=== PATIENT | female | born 1990 | race Caucasian/White ===

== ENCOUNTER 2017-11-16 21:28 | Emergency (ER) | payer SELFPAY ==
--- NOTE | 2017-11-16 22:28 | C.PDOC ---
History Of Present Illness <Julio Burnette - Last Filed: 11/16/17 22:49> <Brett Bond M - Last Filed: 11/21/17 07:15> Patient is a 27 year old female LMP ( 11/02/2017), with no past medical history who presents to the ED with complaints of nausea and vomiting that started around 4pm today. Patient also reports associated symptoms of headache that started after arriving to the ED. Patient denies chest pain, SOB, palpitations, fever, chills, diarrhea and abdominal pain. (Jluio Burnette) History Per: Patient History/Exam Limitations: no limitations Onset/Duration Of Symptoms: Hrs Current Symptoms Are (Timing): Still Present Severity: Mild Pain Scale Rating Of: 2 Recent travel outside of the [place]: No Additional History Per: Patient <Julio Burnette - Last Filed: 11/16/17 22:49> <Brett Bond M - Last Filed: 11/21/17 07:15> Time Seen by Provider: 11/16/17 21:58 Chief Complaint (Nursing): Headache Past Medical History - Medical History PMH: Asthma, Kidney Stones Family History: States: Unknown Family Hx - Social History Hx Tobacco Use: Yes (1-3 Cigarettes ) Hx Alcohol Use: Yes (Socially ) Hx Substance Use: No - Immunization History Hx Tetanus Toxoid Vaccination: No Hx Influenza Vaccination: No Hx Pneumococcal Vaccination: No <Julio Burnette - Last Filed: 11/16/17 22:49> Vital Signs: Last Vital Signs Temp 97.9 F 11/17/17 00:09 Pulse 60 11/17/17 00:09 Resp 14 11/17/17 00:09 BP 100/64 11/17/17 00:09 Pulse Ox 100 11/17/17 00:09 Review Of Systems Constitutional: Negative for: Fever, Chills, Weakness, Malaise Eyes: Negative for: Pain, Vision Change ENT: Negative for: Ear Pain, Ear Discharge Cardiovascular: Positive for: Orthopnea, Paroxysmal Noc. Dyspnea. Negative for : Chest Pain, Palpitations, Edema Respiratory: Negative for: Shortness of Breath, Hemoptysis, SOB with Excertion, Wheezing Gastrointestinal: Positive for: Nausea, Vomiting. Negative for: Abdominal Pain , Diarrhea, Constipation, Hematochezia, Hematemesis Genitourinary: Negative for: Dysuria, Frequency, Hematuria, Vaginal Discharge, Vaginal Bleeding, Pelvic Pain Neurological: Positive for: Headache. Negative for: Weakness, Numbness, Confusion, Seizures, Dizziness <Vasile,Editasodiann E - Last Filed: 11/16/17 22:49> Physical Exam - Physical Exam Appears: No Acute Distress Skin: Normal Color, No Dry Head: Atraumatic, Normacephalic Eye(s): bilateral: Normal Inspection, PERRL, EOMI Oral Mucosa: Moist, No Drooling Tongue: Normal Appearing, No Swelling, No Lesions, No Bite, No Laceration Lips: Normal Appearing Teeth: Normal Dentition Cardiovascular: Rhythm Regular, No Murmur Respiratory: Normal Breath Sounds, No Decreased Breath Sounds, No Accessory Muscle Use, No Rales, No Rhonchi, No Stridor, No Wheezing Gastrointestinal/Abdominal: Normal Exam, Bowel Sounds, Soft, No Tenderness, No Organomegaly, No Mass Back: No CVA Tenderness Extremity: Normal ROM, No Tenderness, No Pedal Edema, No Calf Tenderness, No Capillary Refill, No Swelling Extremity: Bilateral: Atraumatic Neurological/Psych: Oriented x3, Normal Speech, Normal Cognition, Normal Cranial Nerves <Edita Burnettesola E - Last Filed: 11/16/17 22:49> ED Course And Treatment - Laboratory Results Result Diagrams: 11/16/17 22:28 11/16/17 22:28 O2 Sat by Pulse Oximetry: 99 <Edita Burnettesodiann E - Last Filed: 11/16/17 22:49> - Laboratory Results Result Diagrams: 11/16/17 22:28 11/16/17 22:28 <Brett Bond - Last Filed: 11/21/17 07:15> Medical Decision Making <Julio Burnette E - Last Filed: 11/16/17 22:49> <Brett Bond - Last Filed: 11/21/17 07:15> Medical Decision Making: Reglan 10mg IV once Benadryl 25mg PO once daily NS @ 1,000ml bolus K-dur 20meq once (Julio Burnette) On reevaluation, patient states improvement. Will discharge home to follow up with pmd in 2 days. ([place] M) Disposition - Disposition Disposition Time: 22:49 <Julio Burnette E - Last Filed: 11/16/17 22:49> Counseled Patient/Family Regarding: Studies Performed, Diagnosis, Need For Followup, Rx Given <Brett Bond M - Last Filed: 11/21/17 07:15> - Disposition Referrals: [facility] [Outside] Disposition: HOME/ ROUTINE Condition: GOOD Additional Instructions: follow up with your doctor in 2 days call to make an appointment take medication as needed return to ER if symptoms worsens or progress Prescriptions: Ondansetron ODT [Zofran ODT] 4 mg PO TID PRN #12 odt PRN Reason: Nausea/Vomiting Instructions: Nausea and Vomiting, Adult (DC) Forms: General Discharge Instructions, [facility] (Samoan), Work Excuse - Clinical Impression Clinical Impression: Nausea & vomiting
[2017-11-16 22:33] LABS: BASO # 0.1 K/uL (0.0-0.2); BASO % 0.7 % (0.0-2.0); EOS # 0.4 K/uL (0.0-0.7); EOS % 4.1 % (0.0-4.0); HEMOGLOBIN 13.1 g/dL (11.0-16.0); LYMPH # 2.5 K/uL (1.0-4.3); LYMPH % 24.4 % (20.0-40.0); MEAN CORPUSCULAR HGB CONC 34.1 g/dL (33.0-37.0); MEAN PLATELET VOLUME 9.5 fL (7.2-11.7); MONO # 0.7 K/uL (0.0-0.8); MONO % 6.7 % (0.0-10.0); NEUT # 6.7 K/uL (1.8-7.0); NEUT % 64.1 % (50.0-75.0); RBC 4.23 Mil/uL (3.80-5.20); RED CELL DISTRIBUTION WIDTH 13.3 % (11.5-14.5); WHITE BLOOD COUNT 10.4 K/uL (4.8-10.8)
[2017-11-16] MEDS ORDERED: Sodium Chloride 0.9% 1,000 ML IV ONE (22:33)
[2017-11-16] MEDS ORDERED: DiphenhydrAMINE 50 mg/ml Inj IVP STA (22:40)
[2017-11-16 22:44] LABS: ALB/GLOB RATIO 1.2 (1.0-2.1); ALBUMIN 3.9 g/dL (3.5-5.0); ALT/SGPT 27 U/L (9-52); AST/SGOT 19 U/L (14-36); BLOOD UREA NITROGEN 8 mg/dL (7-17); CALCIUM 8.9 mg/dl (8.6-10.4); GFR AFRICAN-AMERICAN > 60; GFR NON-AFRICAN AMERICAN > 60
[2017-11-16] MEDS ORDERED: Potassium Chloride 20 mEq ER Tab PO ONE ×2 (22:46→23:38)
[2017-11-17 00:10] VITALS: BP 100/64; PULSE 60; RESP 14; TEMP 97.9; O2SAT 100
== END 2017-11-17 00:10 | disposition home or self-care (01) ==
LOC: C.ER 21:28
DX: R11.2 Nausea with vomiting, unspecified (principal); E87.6 Hypokalemia
CPT/HCPCS: 80053; 85025; 96374; 99285; J2765